=== PATIENT | female | born 1965 | race Caucasian/White ===

== ENCOUNTER 2021-03-31 17:24 | Emergency (ER) | payer OTHER ==
[~2021-03-31] VITALS: Ht 172.7 cm; Wt 108.9 kg
[2021-03-31 18:09] LABS: ABSOLUTE BASOPHILS 0.1 thou/uL (0.0-0.2); ABSOLUTE EOSINOPHILS 0.1 thou/uL (0.0-0.7); ABSOLUTE LYMPHOCYTES 1.5 thou/uL (0.8-5.3); ABSOLUTE MONOCYTES 0.7 thou/uL (0.0-1.2); ABSOLUTE NEUTROPHILS 5.8 thou/uL (1.6-8.1); BASOPHILS 0.7 %; EOSINOPHILS 1.7 %; LYMPHOCYTES 18.2 %; MCH 27.5 pg (26.0-34.0); MCHC 32.4 g/dL (28.0-37.0); MCV 84.8 fL (80.0-100.0); MONOCYTES 8.7 %; MPV 7.6 fl. (7.2-11.1); NUCLEATED RBCS 0 /100WBC; PLATELET COUNT* 294 thou/uL (150-400); POLYS 70.7 %; RBC 4.72 mil/uL (4.20-5.00); RDW-CV 16.8 % (10.5-14.5); WBC 8.1 thou/uL (4.0-11.0)
[2021-03-31 18:11] LABS: URINE BILIRUBIN NEGATIVE (Negative); URINE BLOOD NEGATIVE (Negative); URINE CLARITY CLEAR; URINE COLOR YELLOW; URINE GLUCOSE-RANDOM NEGATIVE (Negative); URINE KETONES NEGATIVE (Negative); URINE LEUKOCYTES-REFLEX NEGATIVE (Negative); URINE NITRITE-REFLEX NEGATIVE (Negative); URINE PROTEIN NEGATIVE (Negative); URINE SPECIFIC GRAVITY >= 1.030 (1.005-1.030); URINE UROBILINOGEN 0.2 E.U./dl (0.2-1.0)
[2021-03-31 18:13] LABS: CALCIUM 8.9 mg/dL (8.5-10.1); CREATININE 0.8 mg/dL (0.6-1.3); POTASSIUM 3.9 mmol/L (3.5-5.1)
[2021-03-31 18:18] LABS: ALBUMIN 3.3 g/dL (3.4-5.0); TOTAL BILIRUBIN 0.3 mg/dL (<0.1-1.0); TOTAL PROTEIN 7.7 g/dL (6.4-8.2)
[2021-03-31 18:33] VITALS: BP 141/70
[2021-03-31 18:50] LABS: AMP/METHAMP POSITIVE (Negative); BARBITURATES Negative (Negative); BENZODIAZEPINES Negative (Negative); COCAINE Negative (Negative); METHADONE Negative (Negative); OPIATES Negative (Negative); PCP Negative (Negative); THC POSITIVE (Negative)
--- NOTE | 2021-04-01 16:43 | EKG ---
[place] [address] ELECTROCARDIOGRAM REPORT Name: DOMINIQUE CARDENAS Room: [facility]#: [id number] Admission: 03/31/21 Attend Phys: Discharge: 03/31/21 Date of : 69 Date of Service: 03/31/211744 Report #: [id number] THIS REPORT FOR: //name// [facility] ED Test Date: 2021-03-31 Test Time: 17:45:08 Pat Name: DOMINIQUE CARDENAS Department: Room: Gender: Digital Specialist: : [id number] Requested By: Georgina Lozoya Order Number: [id number] MD: Avery Weeks Measurements Intervals [place] Rate: 109 P: 52 NC: 159 QRS: 45 QRSD: 100 T: 37 QT: 337 QTc: 454 Interpretive Statements Sinus tachycardia No previous ECG available for comparison Electronically Signed On 04-01-2021 16:43:35 CDT by Avery Weeks [email or web address] <ELECTRONICALLY SIGNED> By: Avery Weeks MD, [facility] 04/01/21 1643 44 44 Avery Weeks MD, FACC /EPI
== END 2021-03-31 18:33 | disposition home or self-care (01) ==
LOC: M.ERS 17:24
PROVIDERS: Physician Assistant
DX: R53.83 Other fatigue (principal)